=== PATIENT | male | born 1975 | race Caucasian/White ===

== ENCOUNTER 2022-01-19 13:47 | Emergency (ER) | payer BC, SELFPAY ==
--- NOTE | 2022-01-19 14:00 | RT.EKG_ITS ---
APPROVED REPORT Exam: Resting ECG Reason for Exam: anxiety Patient Location: E HR:95 bpm ECG Measurements Heart Rate 95 AXIS DC 162 P 62 QRSd 92 QRS 42 QT 367 T 36 QTc 463 Conclusion Incomplete analysis due to missing data in precordial lead(s) Sinus rhythm...normal P axis, V-rate 60- 99. Sinus. Incomplete due to missing V1. Normal axis. No STEMI. I have reviewed and interpreted ECG and agree with software generated interpretation.
[2022-01-19 14:16] VITALS: BP 157/98; PULSE 105; RESP 16; TEMP 37.3; O2SAT 97
--- NOTE | 2022-01-19 14:17 | ED.GENADUL_ITS ---
Discharge Plan Disposition Patient Disposition: HOME Condition: Stable Discharge Details Clinical Impression: Anxiety Primary Care Provider: Eileen,Local ED Provider: Michell Wu Home Meds and New Rx's Prescriptions: Continued atorvastatin 20 mg tablet 20 mg PO DAILY 0RF Label Comments: TAKE 1 TABLET BY MOUTH EVERY DAY lisinopril 10 mg tablet 10 mg PO DAILY 0RF Label Comments: TAKE 1 TABLET BY MOUTH EVERY DAY Discharge Instructions Instructions: Chest Pain (ED), Anxiety (ED) Additional Instructions: At this time I did time cardiac work-up is within normal limits Follow up with primary care provider in 3-5 days. Return to ED sooner if any worsening or concerns. Increase oral fluids. Please take Tylenol or Ibuprofen with food every 4-6 hours as needed for pain and swelling. Consider taking a chewable baby aspirin daily. Medical Decision Making 46-year-old male presented to the ER with chief complaint of what he attributed to a panic attack which occurred approximately 2 hours ago. Reports that he was dealing with personal issues when he began with what he reports as anxiety he reports some tingling, chest pressure and head pressure. He reports that the symptoms resolved after taking a walk and calming down. She states that he then began with the midepigastric pain which has since resolved. he does have a past medical history of hypertension and takes 10 mg lisinopril daily. He is a non-smoker. He denies any previous issues with anxiety. EKG was changed on initial presentation however V1 was not able to be captured due to equipment malfunction. The remaining EKG appears to be normal sinus rhythm. Please see ER attending official report and review. We will order some screening labs including troponin CBC CMP. Will give aspirin. CBC, CMP and initial troponin within normal limits. Glucose is 113 slightly elevated. 1545: Patient re-evaluation: He reports feeling much better. No further chest pain or abdominal pain. Will repeat EKG and if it limits will discharge home. Patient reports that he is visiting from out of town has PCP [place]. Repeat EKG within normal limits. Patient discharged with instructions follow-up with PCP and strict return instructions. This text was generated using [employer] system, please disregard any oddities of phrase or misspellings. HPI General Mode of arrival: ambulatory . Date/Time Provider Initiated Documentation: 01/19/22 13:50 . Limitations to Documentation: no limitations . Information obtained by: patient, RN notes reviewed and old records reviewed . HPI Narrative: 46-year-old male presented to the ER with chief complaint of what he attributed to a panic attack which occurred approximately 2 hours ago. Reports that he was dealing with personal issues when he began with what he reports as anxiety he reports some tingling, chest pressure and head pressure. He reports that the symptoms resolved after taking a walk and calming down. She states that he then began with the midepigastric pain which has since resolved. he does have a past medical history of hypertension and takes 10 mg lisinopril daily. He is a non- smoker. He denies any previous issues with anxiety. Related Data Home Medications Medication Instructions Recorded Confirmed atorvastatin 20 mg tablet 20 mg PO DAILY 01/19/22 01/19/22 lisinopril 10 mg tablet 10 mg PO DAILY 01/19/22 01/19/22 Allergies Allergy/AdvReac Type Severity Reaction Status Date / Time environmental Allergy Uncoded 01/19/22 14:21 Review of Systems All systems reviewed & are unremarkable except as noted in HPI and below Cardiovascular Cardiovascular: Reports chest pain Gastrointestinal Gastrointestinal: Reports abdominal pain Psychiatric Psychiatric: Reports anxiety PFSH All Active Problems (Updated 01/19/22 @ 15:52 by Michell Wu) Anxiety (Chronic) Social History Smoking/Tobacco Use Status: Never Smoking risk assessment performed?: Yes Substance use type: does not use Exam Narrative Exam Narrative: Constitutional: Alert and oriented x3. Appears stated age. Normal body habitus. Head: Normocephalic, no trauma. Eyes: Pupils PERRL, Red reflex noted, EOM's intact. Eyelids symmetrical without lesions, discharge, or swelling. ENT: Bilateral TM's WNL, External ear normal to inspection, no mastoid TTP, swelling, or erythema, Nasal turbinates WNL, no nasal discharge. Normal dentition, Posterior pharynx WNL, no exudate. Chest: RRR, Normal S1, S2, distal pulses intact. Resp: Lungs clear to auscultation bilaterally, no wheezes, rales, or rhonchi. Abdomen: Soft, non-distended, Normoactive bowel sounds all 4 quads. Musculoskeletal: Normal gait, 5/5 strength to all four extremities. Skin: No suspicious rashes or lesions. Capillary refill less than 2 sec. Neurologic: Cranial nerves II-XII intact. Alert and oriented x 3. Motor: No deficits noted. Sensory: Intact bilaterally all 4 extremities. Reflexes: DTR's intact bilaterally.. Hematologic/Lymphatic: No ecchymosis, no lymphadenopathy.
[2022-01-19] MEDS: Aspirin 81 MG CHEW 324 MG CH (14:32)
[2022-01-19] MEDS: LORazepam 0.5 MG TAB PO (14:32)
[2022-01-19 14:51] LABS: Abs Immature Grans 0.03 10^3/uL (0.0-0.06); Absolute Basophil Count 0.05 10^3/uL (0.0-0.2); Absolute Eosinophil Count 0.01 10^3/uL (0.0-0.7); Absolute Lymphocyte Count 1.79 10^3/uL (1.2-3.4); Absolute Monocyte Count 0.57 10^3/uL (0.1-0.8); Absolute Neutrophil Count 6.02 10^3/uL (1.2-6.7); Basophils % 0.6; Eosinophils % 0.1; HCT 42.8 % (40.0-50.0); HGB 14.5 g/dL (13.5-17.5); Immature Grans % 0.4; Lymphocytes % 21.1; MCH 31.5 pg (27.0-33.0); MCHC 33.9 % (32.0-36.0); MCV 92.8 fL (80-95); Monocytes % 6.7; Neutrophils % 71.1; Nucleated RBC 0 %; Platelet Count 270 10^3/uL (130-400); RBC 4.61 10^6/uL (4.36-5.78); RDW-SD 41.2 fL; WBC 8.47 10^3/uL (4.4-10.8)
[2022-01-19 15:13] LABS: ALT 32 U/L (16-63); AST 28 U/L (15-37); Albumin 4.7 g/dL (3.4-5.0); Alkaline Phosphatase 54 U/L (46-116); Anion Gap 10.2 mmol/L (3-11); BUN 10 mg/dL (7-18); CO2 26.8 mmol/L (21.0-32.0); CREATININE 0.9 mg/dL (0.70-1.30); Calcium 9.3 mg/dL (8.5-10.1); Chloride 106 mmol/L (98-107); Glucose 113 mg/dL (74-106); Potassium 3.7 mmol/L (3.5-5.1); Sodium 143 mmol/L (136-145); Total Protein 8.1 g/dL (6.4-8.2); Troponin I < 50 ng/L (<or=60)
--- NOTE | 2022-01-19 15:30 | RT.EKG_ITS ---
APPROVED REPORT Exam: Resting ECG Reason for Exam: Repeat Patient Location: E HR:86 bpm ECG Measurements Heart Rate 86 AXIS CA 164 P 50 QRSd 101 QRS 22 QT 385 T 32 QTc 460 Conclusion Sinus rhythm...normal P axis, V-rate 60- 99 sinus rhythm, normal axis, non ischemic, likely motion artifact in lead V2
[2022-01-19 16:12] VITALS: BP 169/99; PULSE 95; RESP 16; O2SAT 98
== END 2022-01-19 16:12 | disposition home or self-care (01) ==
PROVIDERS: Emergency Provider Registered Nurse Emergency
DX: F41.9 Anxiety disorder, unspecified (principal); R07.89 Other chest pain; I10 Essential (primary) hypertension
CPT/HCPCS: 36415; 80053; 93005; 99283; 84484; 85025; 93010